=== PATIENT | female | born 1990 | race African-American/Black ===

== ENCOUNTER 2022-03-20 10:35 | Emergency (ER) | payer MEDICAID, OTHER ==
[2022-03-20] MEDS ORDERED: Acetaminophen 500 MG TAB ONE (11:54)
== END 2022-03-20 11:55 | disposition home or self-care (01) ==
LOC: CSHERS 10:35
DX: U07.1 COVID-19 (principal); J06.9 Acute upper respiratory infection, unspecified
CPT/HCPCS: 99283; U0003; U0005

== ENCOUNTER 2022-09-20 10:37 | Emergency (ER) | payer OTHER ==
[2022-09-20] MEDS ORDERED: Cyclobenzaprine 10 MG TAB ONE (11:39)
[2022-09-20] MEDS ORDERED: HYDROcodone/Acetaminophen 5/325 mg Tablet ONE (11:40)
[2022-09-20 11:59] LABS: Pregnancy Test - Urine (BHCG) Negative (Negative); Pregu Control Background? CLEAR/WHITE (CLR/WHITE); Pregu Control Bar Appear? YES (CONTROL BAR); Specific Gravity 1.015 (1.002-1.036)
== END 2022-09-20 13:11 | disposition home or self-care (01) ==
LOC: CSHERS 10:37
DX: S39.012A Strain of muscle, fascia and tendon of lower back, initial encounter (principal); S09.90XA Unspecified injury of head, initial encounter; V86.35XA Unspecified occupant of 3- or 4- wheeled all-terrain vehicle (ATV) injured in traffic accident, initial encounter
CPT/HCPCS: 70450; 72100; 81025

== ENCOUNTER 2022-11-06 19:56 | Emergency (ER) | payer OTHER | END 2022-11-06 21:35 | disposition home or self-care (01) | LOC: CSHERS 19:56 | DX: Z30.431 Encounter for routine checking of intrauterine contraceptive device (principal); I10 Essential (primary) hypertension | CPT/HCPCS: 99282 ==